=== PATIENT | female | born 1985 | race African-American/Black ===

== ENCOUNTER 2017-06-23 17:15 | Emergency (ER) | payer SELFPAY ==
[2017-06-23] MEDS ORDERED: IBUPROFEN 800 MG TABLET PO ONE (18:03)
[2017-06-23] MEDS ORDERED: LIDOCAINE 4%/TETRACAINE 0.5%/EPI 0.18% 5 ML TOPICAL SOLN TOP ONE (18:03)
[2017-06-23] MEDS ORDERED: ACETAMINOPHEN 325 MG TABLET PO ONE (18:03)
[2017-06-23] MEDS ORDERED: SULFAMETHOXAZOLE/TRIMETHOPRIM 800-160 MG TABLET PO ONE (19:37)
--- NOTE | 2017-06-23 19:38 | ER Document Report ---
HPI - HPI Patient complains to provider of: Left labia abscess Onset: Other - Several days Onset/Duration: Persistent Quality of pain: Throbbing Pain Level: 5 Context: 32-year-old female complaining of 2 painful abscess on the left labia. No history of MRSA. No fever. 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 She is allergic to penicillin. No pelvic pain Associated Symptoms: None Exacerbated by: Walking Relieved by: Denies Similar symptoms previously: No Recently seen / treated by doctor: No - ROS ROS below otherwise negative: Yes Systems Reviewed and Negative: Yes All other systems reviewed and negative Past Medical History - General Information source: Patient - Social History Smoking Status: Never Smoker Chew tobacco use (# tins/day): No Frequency of alcohol use: None Drug Abuse: None Lives with: Family Family History: Reviewed & Not Pertinent Patient has suicidal ideation: No Patient has homicidal ideation: No - Medical History Medical History: Negative Renal/ Medical History: Denies: Hx Peritoneal Dialysis Surgical Hx: Negative Vertical Provider Document - CONSTITUTIONAL Agree With Documented VS: Yes Exam Limitations: No Limitations - INFECTION CONTROL TRAVEL OUTSIDE OF THE [place] IN LAST 30 DAYS: No - HEENT HEENT: Normocephalic - NECK Neck: Supple - RESPIRATORY O2 Sat by Pulse Oximetry: 99 - MUSCULOSKELETAL/EXTREMETIES Musculoskeletal/Extremeties: ANISA CAMERON - NEURO Level of Consciousness: Awake, Alert - DERM Integumentary: Abscess - 2 follicular abscess on the left superior labia majora one is draining and one has a head to it. Course - Re-evaluation Re-evalutation: 06/23/17 19:35 no hx MRSA - Vital Signs Vital signs: Temp Pulse Resp BP Pulse Ox 97.6 F 98 16 128/72 H 99 06/23/17 17:24 06/23/17 17:24 06/23/17 17:24 06/23/17 17:24 06/23/17 17:24 Procedures - Incision and Drainage Left Labia Time completed: 19:38 Type: Simple Anesthetic type: 1% Lidocaine mL's of anesthetic: 5 Blade size: 11 I&D procedure: Betadine prep applied Incision Method: Incision made by scalpel Amount/type of drainage: large pus Discharge - Discharge Clinical Impression: I and D 2 left labia abscess Condition: Good Disposition: HOME, SELF-CARE Instructions: Abscess ([facility]), Trimethoprim-Sulfa ([facility]), Warm Packs ([facility]) Additional Instructions: warm moist compress all day tomorrow antibiotic four times per day to er if worse Prescriptions: Ibuprofen [Motrin 800 mg Tablet] 800 mg PO Q8HP PRN #30 tablet PRN Reason: Sulfamethoxazole/Trimethoprim [Sulfamethoxazole-Tmp Ds Tablet] 1 each PO BID # 14 tablet Forms: Return to Work
[2017-06-23 20:56] VITALS: BP 102/62
== END 2017-06-23 20:20 | disposition home or self-care (01) ==
LOC: ER 17:15
PROC: 0U9MXZZ Drainage of Vulva, External Approach (ICD-10-PCS; principal; 2017-06-23)
DX: N76.4 Abscess of vulva (principal)
CPT/HCPCS: 99283; 56405; J3490

== ENCOUNTER 2017-11-22 13:12 | Emergency (ER) | payer OTHER, MEDICAID ==
[2017-11-22 15:10] LABS: ABSOLUTE BASOPHILS # (AUTO) 0.1 10^3/uL (0.0-0.2); ABSOLUTE EOSINOPHILS # (AUTO) 0.4 10^3/uL (0.0-0.6); ABSOLUTE LYMPHOCYTES (AUTO) 3.5 10^3/uL (0.5-4.7); ABSOLUTE MONOCYTES (AUTO) 0.8 10^3/uL (0.1-1.4); ABSOLUTE NEUT (AUTO) 8.7 10^3/uL (1.7-8.2); BASOPHILS % (AUTO) 0.6 % (0-2); EOSINOPHILS % (AUTO) 2.7 % (0-6); HEMOGLOBIN 9.8 g/dL (12.0-15.5); LYMPHOCYTES % (AUTO) 26.2 % (13-45); MEAN CORPUSCULAR HEMOGLOBIN 26.9 pg (27.0-33.4); MEAN CORPUSCULAR HGB CONC 32.7 g/dL (32.0-36.0); MEAN CORPUSCULAR VOLUME 82 fl (80-97); MONOCYTES % (AUTO) 6.1 % (3-13); RED BLOOD COUNT 3.65 10^6/uL (3.72-5.28); RED CELL DISTRIBUTION WIDTH 13.5 % (11.5-14.0); SEGMENTED NEUTROPHILS % (AUTO) 64.4 % (42-78); TOTAL CELLS COUNTED % (AUTO) 100 %; WHITE BLOOD COUNT 13.5 10^3/uL (4.0-10.5)
[2017-11-22 15:18] LABS: APPEARANCE,URINE SLIGHTLY-CLOUDY; BILIRUBIN,URINE NEGATIVE (NEGATIVE); COLOR,URINE YELLOW; GLUCOSE, URINE NEGATIVE (NEGATIVE); KETONES,URINE 20 mg/dL (NEGATIVE); LEUKOCYTE ESTERASE,URINE NEGATIVE (NEGATIVE); NITRITE,URINE NEGATIVE (NEGATIVE); PROTEIN,URINE NEGATIVE (NEGATIVE); URINE SPECIFIC GRAVITY 1.023; UROBILINOGEN,URINE NEGATIVE mg/dL (<2.0)
[2017-11-22 15:27] LABS: ANION GAP 10 (5-19); BLOOD UREA NITROGEN 11 mg/dL (7-20); CALCIUM 9.7 mg/dL (8.4-10.2); CARBON DIOXIDE 22 mmol/L (22-30); CHLORIDE 103 mmol/L (98-107); GLUCOSE 111 mg/dL (75-110); POTASSIUM 3.9 mmol/L (3.6-5.0); SODIUM 135.1 mmol/L (137-145)
[2017-11-22 15:38] LABS: PLATELET COUNT 220 10^3/uL (150-450)
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
[2017-11-22 17:33] VITALS: BP 112/73
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
== END 2017-11-22 17:33 | disposition home or self-care (01) ==
LOC: ER 13:12
DX: O9A.212 Injury, poisoning and certain other consequences of external causes complicating pregnancy, second trimester (principal); O26.892 Other specified pregnancy related conditions, second trimester; R10.30 Lower abdominal pain, unspecified; V89.2XXA Person injured in unspecified motor-vehicle accident, traffic, initial encounter
CPT/HCPCS: 36415; 76815; 80048; 81001; 85025; 86900; 86901; 99284

== ENCOUNTER 2018-02-06 08:38 | Outpatient (CLI) | payer BC, MEDICAID ==
[2018-02-06 10:20] LABS: APPEARANCE,URINE SLIGHTLY-CLOUDY; BILIRUBIN,URINE NEGATIVE (NEGATIVE); COLOR,URINE YELLOW; GLUCOSE, URINE NEGATIVE (NEGATIVE); KETONES,URINE NEGATIVE (NEGATIVE); LEUKOCYTE ESTERASE,URINE LARGE (NEGATIVE); NITRITE,URINE NEGATIVE (NEGATIVE); PROTEIN,URINE NEGATIVE (NEGATIVE); URINE SPECIFIC GRAVITY 1.015; UROBILINOGEN,URINE NEGATIVE mg/dL (<2.0)
--- NOTE | 2018-02-06 10:45 | L&D Progress Notes ---
PROGRESS NOTES Datetime Report Generated by CPN: 02/06/2018 10:44 PROGRESS NOTE Comment: pt here with c/o contactions. Cx closed. Rx for diflucan given for yeast on UA. has f/u tomorrow in clinic SIGNATURE SIGNATURE: [id number] Assignment: Samantha King MD Signature: with User ID: [email or web address] : with User ID: [email or web address]
[2018-02-06 14:21] LABS: URINE AMPHETAMINES SCREEN NEGATIVE; URINE BARBITURATES SCREEN NEGATIVE; URINE BENZODIAZEPINES SCREEN NEGATIVE; URINE COCAINE SCREEN NEGATIVE; URINE MARIJUANA (THC) SCREEN NEGATIVE; URINE METHADONE SCREEN NEGATIVE; URINE PHENCYCLIDINE SCREEN NEGATIVE
== END 2018-02-06 10:46 | disposition home or self-care (01) ==
LOC: LC 08:38
PROVIDERS: ATTEND Obstetrics & Gynecology
PROC: 4A1HXCZ Monitoring of Products of Conception, Cardiac Rate, External Approach (ICD-10-PCS; principal; 2018-02-06)
DX: O98.813 Other maternal infectious and parasitic diseases complicating pregnancy, third trimester (principal); B37.3 Candidiasis of vulva and vagina; Z3A.30 30 weeks gestation of pregnancy
CPT/HCPCS: 80307; 81001

== ENCOUNTER 2018-04-07 05:05 | Inpatient (IN) | payer BC, MEDICAID ==
[2018-04-05 11:37] LABS: ABSOLUTE EOSINOPHILS # (AUTO) 0.1 10^3/uL (0.0-0.6); ABSOLUTE LYMPHOCYTES (AUTO) 2.3 10^3/uL (0.5-4.7); ABSOLUTE MONOCYTES (AUTO) 0.5 10^3/uL (0.1-1.4); ABSOLUTE NEUT (AUTO) 2.6 10^3/uL (1.7-8.2); BASOPHILS % (AUTO) 0.6 % (0-2); EOSINOPHILS % (AUTO) 2.3 % (0-6); HEMATOCRIT 26.7 % (36.0-47.0); HEMOGLOBIN 8.6 g/dL (12.0-15.5); LYMPHOCYTES % (AUTO) 41.4 % (13-45); MEAN CORPUSCULAR HEMOGLOBIN 23.1 pg (27.0-33.4); MEAN CORPUSCULAR HGB CONC 32.1 g/dL (32.0-36.0); MEAN CORPUSCULAR VOLUME 72 fl (80-97); MONOCYTES % (AUTO) 9.1 % (3-13); PLATELET COUNT 190 10^3/uL (150-450); RED BLOOD COUNT 3.71 10^6/uL (3.72-5.28); RED CELL DISTRIBUTION WIDTH 15.3 % (11.5-14.0); SEGMENTED NEUTROPHILS % (AUTO) 46.6 % (42-78); TOTAL CELLS COUNTED % (AUTO) 100 %; WHITE BLOOD COUNT 5.6 10^3/uL (4.0-10.5)
[2018-04-05 11:45] LABS: APPEARANCE,URINE CLEAR; BILIRUBIN,URINE NEGATIVE (NEGATIVE); COLOR,URINE YELLOW; GLUCOSE, URINE NEGATIVE (NEGATIVE); KETONES,URINE NEGATIVE (NEGATIVE); LEUKOCYTE ESTERASE,URINE NEGATIVE (NEGATIVE); NITRITE,URINE NEGATIVE (NEGATIVE); PROTEIN,URINE 30 mg/dL (NEGATIVE); URINE SPECIFIC GRAVITY 1.012; UROBILINOGEN,URINE NEGATIVE mg/dL (<2.0)
[2018-04-05 12:02] LABS: URINE AMPHETAMINES SCREEN NEGATIVE; URINE BARBITURATES SCREEN NEGATIVE; URINE BENZODIAZEPINES SCREEN NEGATIVE; URINE COCAINE SCREEN NEGATIVE; URINE MARIJUANA (THC) SCREEN NEGATIVE; URINE METHADONE SCREEN NEGATIVE; URINE PHENCYCLIDINE SCREEN NEGATIVE
[2018-04-07] MEDS ORDERED: RINGERS SOLUTION,LACTATED 1,000 ML IV PRN (05:39)
[2018-04-07] MEDS ORDERED: CEFAZOLIN 1 GM/D5W RTU 1 GM/50 ML RTUPB IV PRN (05:40)
[2018-04-07] MEDS ORDERED: CEFAZOLIN 1 GM/D5W RTU 2 GM/100 ML RTUPB IV PRN (07:00)
[2018-04-07] MEDS ORDERED: FENTANYL CITRATE INJ/PF 100 MCG/2 ML AMPUL ONE (07:21)
[2018-04-07] MEDS ORDERED: OXYTOCIN 10 UNIT/ML VIAL ONE (07:21)
[2018-04-07] MEDS ORDERED: EPHEDRINE SULFATE INJ 50 MG/1 ML AMPULE ONE (07:21)
[2018-04-07] MEDS ORDERED: OXYTOCIN/NORMAL SALINE 20 UNIT/1,000 ML RTUINJ ONE (07:21)
[2018-04-07] MEDS ORDERED: KETOROLAC TROMETHAMINE INJ/PF 30 MG/1 ML SDV ONE (07:21)
[2018-04-07] MEDS ORDERED: MIDAZOLAM 2 MG/2 ML INJ ONE (07:21)
[2018-04-07] MEDS ORDERED: BUPIVACAINE HCL/DEX-WATER/PF 15 MG/2 ML AMPULE ONE (07:21)
[2018-04-07] MEDS ORDERED: ONDANSETRON HCL INJ/PF 4 MG/2 ML SDV ONE ×2 (07:22→09:52)
[2018-04-07] MEDS ORDERED: ACETAMINOPHEN 1,000 MG/100 ML RTUPB IV ONE (07:22)
[2018-04-07] MEDS ORDERED: PROMETHAZINE HCL INJ 25 MG/1 ML VIAL IV PRN ×3 (08:10→08:31)
[2018-04-07] MEDS ORDERED: ACETAMINOPHEN 1,000 MG/100 ML RTUPB IV PRN (08:10)
[2018-04-07] MEDS ORDERED: ACETAMINOPHEN 325 MG TABLET PO PRN (08:10)
[2018-04-07] MEDS ORDERED: MEASLES,MUMPS&RUBELLA VACC/PF 0.5 ML VIAL SUBCUT PRN (08:10)
[2018-04-07] MEDS ORDERED: DIPH/PERTUSS(ACELL)/TETANUS VAC/PF 0.5 ML SYR (>=10YO) IM PRN (08:10)
[2018-04-07] MEDS ORDERED: OXYCODONE-ACETAMINOPHEN 5-325 MG TABLET PO PRN (08:10)
[2018-04-07] MEDS ORDERED: OXYTOCIN/NORMAL SALINE 20 UNIT/1,000 ML RTUINJ IV PRN (08:10)
[2018-04-07] MEDS ORDERED: SIMETHICONE 80 MG TAB.CHEW PO PRN (08:10)
[2018-04-07] MEDS ORDERED: HYDROMORPHONE HCL INJ/PF 2 MG/ML AMPULE IV PRN (08:10)
[2018-04-07] MEDS ORDERED: DIPHENHYDRAMINE HCL 50 MG/ML VIAL IV PRN (08:31)
[2018-04-07] MEDS ORDERED: MEPERIDINE HCL/PF INJ 25 MG/1 ML DISP.SYRIN IV PRN (08:31)
[2018-04-07] MEDS ORDERED: FENTANYL CITRATE INJ/PF 100 MCG/2 ML AMPUL IV PRN ×3 (08:31)
[2018-04-07] MEDS ORDERED: ONDANSETRON HCL INJ/PF 4 MG/2 ML SDV IV PRN (08:31)
--- NOTE | 2018-04-07 09:13 | PDOC DELIVERY SUMMARY ---
Delivery Summary - Maternal Hx : II Hx # Pregnancies: 1 ASIA: 04/13/18 Gestational Age: 37 weeks Ruptured Membranes: AROM Time of Rupture: 08:32 Fluids: Clear - Delivery Presentation: Vertex Heart Rate Monitoring: Done Pre-Operatively Support Person Present: Yes Location: OR : Scheduled, Repeat Placenta: Within Normal Limits Delivery of Placenta Date: 04/07/18 Delivery of Placenta Time: 08:34 - Medications Type of Anesthesia:: Spinal - Assess and Care Baby 1 Female Delivery of Date: 04/07/18 Delivery of Infant Time: 08:33 at 1 minute: 8 at 5 minutes: 9 Preprinted Number On Band: [id number] Skin to Skin: No To Nursery At: 08:42 Mode of Transport: Bassinet - Delivery Personnel Shell Fisherman: SADAF BOYKIN RN: EARNESTINE QUIÑONES MD: ROBYN CLIFTON
--- NOTE | 2018-04-07 09:19 | Operative Report ---
Operative Report DATE OF SURGERY: 04/07/18 PREOPERATIVE DIAGNOSIS: Patient desires repeat to prevent the risk of uterine rupture POSTOPERATIVE DIAGNOSIS: Same OPERATION: Repeat via low transverse uterine incision and lysis of adhesions SURGEON: ROBYN CLIFTON ANESTHESIA: Spinal TISSUE REMOVED OR ALTERED: Placenta COMPLICATIONS: None ESTIMATED BLOOD LOSS: 250 cc INTRAOPERATIVE FINDINGS: Dense adhesions of the lower uterine segment to the anterior abdominal wall PROCEDURE: Patient was taken back to the OR and placed in supine position. A spinal had been placed prior to this. A Norton catheter was placed SCDs were placed. Her abdomen was prepared and draped in sterile fashion. A low transverse incision was made along her old scar and carried down level of the fascia. The fascia was nicked in the midline. The fascial incision was extended bilaterally using curved Smart scissors. The fascia was off the rectus muscles using sharp and blunt dissection. The rectus muscles were in the midline. The peritoneum was entered without incident. Peritoneal incision extended superiorly inferiorly taking care not to injure bladder. There were dense adhesions at the low uterine segment in this region. Using sharp dissection these were taken down to allow room for delivery of the baby. There is no evidence of injury to the bladder during this period bladder blade was placed lower uterine segment was identified and incision was made with the see safe knife. The baby was delivered with some fundal pressure in a vertex fashion. She was passed off to the boning room worker in attendance. The placenta was manually extracted. The uterus was quite large and would not fit through the incision and was closed in situ. First the uterine contents wiped clean. The uterus closed with a running locking stitch of 0 chromic. A second layer of 0 chromic was used to imbricate first. This completed double layer closure of the uterus. Interceed was placed over the incision and attempt to prevent the adhesions from reforming. Hemostasis was assured. The rectus muscles were plicated in the midline with interrupted 2-0 chromic stitch. The subfascial tissues were inspected for bleeding and the fascia was closed with a running 0 Vicryl in 2 segments. The wound was irrigated Keshawn's layer was closed 2-0 plain gut stitch. The skin was closed with a running subcuticular 4-0 undyed Vicryl stitch and dressing was placed. Mother and baby are doing well.
[2018-04-07] MEDS ORDERED: DEXAMETHASONE SOD PHOSPHATE INJ 4 MG/1 ML VIAL ONE (09:52)
[2018-04-07] MEDS ORDERED: METOCLOPRAMIDE HCL INJ/PF 10 MG/2 ML SDV ONE (09:52)
[2018-04-07] MEDS ORDERED: HYDROMORPHONE HCL INJ/PF 2 MG/ML AMPULE ONE (10:30)
[2018-04-07] MEDS ORDERED: PROMETHAZINE HCL INJ 25 MG/1 ML VIAL ONE (10:31)
[2018-04-07] MEDS: RINGERS SOLUTION,LACTATED 1,000 ML IV PRN ×2 (10:39→19:58)
[2018-04-07] MEDS: DOCUSATE SODIUM 100 MG CAPSULE PO SCH ×2 (11:37→17:52)
[2018-04-07] MEDS: PRENATAL VITAMIN W DHA CAPSULE PO SCH (11:37)
[2018-04-07] MEDS: KETOROLAC TROMETHAMINE INJ/PF 30 MG/1 ML SDV IV SCH ×2 (14:33→22:33)
[2018-04-07] MEDS: OXYCODONE-ACETAMINOPHEN 5-325 MG TABLET PO PRN (19:58)
[2018-04-08] MEDS: OXYCODONE-ACETAMINOPHEN 5-325 MG TABLET PO PRN ×3 (03:03→12:59)
[2018-04-08] MEDS ORDERED: LIDOCAINE 0.5% INJ-PF (5 MG/ML) 50 ML SDV SUBCUT PRN (05:00)
[2018-04-08] MEDS ORDERED: NORMAL SALINE 1000 ML (RENAL PATIENTS) IV PRN (05:00)
[2018-04-08] MEDS ORDERED: LACTATED RINGERS 1000 ML IV PRN (05:00)
[2018-04-08] MEDS: KETOROLAC TROMETHAMINE INJ/PF 30 MG/1 ML SDV IV SCH (05:17)
[2018-04-08 07:17] LABS: HEMATOCRIT 22.6 % (36.0-47.0); MEAN CORPUSCULAR HEMOGLOBIN 23.4 pg (27.0-33.4); MEAN CORPUSCULAR HGB CONC 32.2 g/dL (32.0-36.0); MEAN CORPUSCULAR VOLUME 73 fl (80-97); PLATELET COUNT 176 10^3/uL (150-450); RED BLOOD COUNT 3.12 10^6/uL (3.72-5.28); RED CELL DISTRIBUTION WIDTH 15.5 % (11.5-14.0)
[2018-04-08 07:30] LABS: WHITE BLOOD COUNT 13.8 10^3/uL (4.0-10.5)
[2018-04-08 07:32] LABS: HEMOGLOBIN 7.3 g/dL (12.0-15.5)
[2018-04-08] MEDS: PRENATAL VITAMIN W DHA CAPSULE PO SCH (10:11)
[2018-04-08] MEDS: DOCUSATE SODIUM 100 MG CAPSULE PO SCH ×2 (10:11→17:10)
[2018-04-08] MEDS: IBUPROFEN 800 MG TABLET PO SCH ×3 (12:59→23:08)
--- NOTE | 2018-04-08 14:54 | PDOC PROGRESS REPORT ---
Subjective-OB Progress Note for:: 04/08/18 Subjective: reports bleeding slowing, pain controlled with current meds, denies needs, + passing gas, denies sx of anemia, agrees to plan for recheck in AM Physical Exam (OB) Vital Signs: Temp Pulse Resp BP Pulse Ox 98.5 F 93 18 118/62 98 04/08/18 12:48 04/08/18 12:48 04/08/18 12:48 04/08/18 12:48 04/08/18 12:48 Intake & Output 04/07/18 04/08/18 04/09/18 06:59 06:59 06:59 Intake Total 4150 Output Total 950 Balance 3200 Weight 101.151 kg - Dressing Removed: No - opsite dressing in place Incision: Dressing, Draining, Well Approximated - intact but wet (not bloody) under op sit-RN requested change and help with binder Closure Type: ops site - Abdomen Description: Tender, Soft Hernia Present: No Fundal Description: Firm, Midline Fundal Height: u/u - u/2 - Extremities Lower extremities: Johanny's sign - neg Calf: Nontender - slightly edematous Objective-Diagnostic Laboratory: 04/08/18 06:01 04/08/18 06:01 WBC 13.8 H D RBC 3.12 L Hgb 7.3 L Hct 22.6 L MCV 73 L MCH 23.4 L MCHC 32.2 RDW 15.5 H Plt Count 176 Assessment and Plan(PN) - Assessment and Plan (1) Status post repeat low transverse section Is this a current diagnosis for this admission?: Yes - Time Spent with Patient Time with patient: Less than 15 minutes - Disposition Anticipated Discharge: Home Within: within 48 hours
[2018-04-08] MEDS: FERROUS SULFATE 325 MG TABLET PO SCH ×2 (15:06→17:10)
[2018-04-09] MEDS: IBUPROFEN 800 MG TABLET PO SCH (06:24)
[2018-04-09 07:35] LABS: HEMATOCRIT 22.6 % (36.0-47.0); MEAN CORPUSCULAR HEMOGLOBIN 23.2 pg (27.0-33.4); MEAN CORPUSCULAR HGB CONC 32.4 g/dL (32.0-36.0); MEAN CORPUSCULAR VOLUME 72 fl (80-97); PLATELET COUNT 181 10^3/uL (150-450); RED BLOOD COUNT 3.15 10^6/uL (3.72-5.28); RED CELL DISTRIBUTION WIDTH 16.1 % (11.5-14.0); WHITE BLOOD COUNT 10.9 10^3/uL (4.0-10.5)
[2018-04-09 07:50] LABS: HEMOGLOBIN 7.3 g/dL (12.0-15.5)
[2018-04-09] MEDS: OXYCODONE-ACETAMINOPHEN 5-325 MG TABLET PO PRN (08:04)
[2018-04-09] MEDS: FERROUS SULFATE 325 MG TABLET PO SCH (10:07)
[2018-04-09] MEDS: PRENATAL VITAMIN W DHA CAPSULE PO SCH (10:07)
[2018-04-09] MEDS: DOCUSATE SODIUM 100 MG CAPSULE PO SCH (10:07)
--- NOTE | 2018-04-09 10:51 | PDOC DISCHARGE SUMMARY ---
Final Diagnosis Discharge Date: 04/09/18 - Final Diagnosis (1) Status post repeat low transverse section Is this a current diagnosis for this admission?: Yes (2) Anemia affecting Is this a current diagnosis for this admission?: Yes Discharge Data - Discharge Medication Prescriptions: Ibuprofen [Motrin 800 mg Tablet] 800 mg PO Q8HP PRN #60 tablet PRN Reason: Oxycodone HCl/Acetaminophen [Percocet 5-325 mg Tablet] 1 tab PO Q4HP PRN #30 tablet PRN Reason: Home Medications: 105/Iron/Folic AC/Dha [Prena1 True Combo Pack] 1 each PO DAILY PRN Docusate Sodium [Colace 100 mg Capsule] 100 mg PO BID capsule 04/09/18 Ferrous Sulfate [Feosol 325 mg Tablet] 325 mg PO BID tablet 04/09/18 Ibuprofen [Motrin 800 mg Tablet] 800 mg PO Q8HP PRN #60 tablet 04/09/18 Oxycodone HCl/Acetaminophen [Percocet 5-325 mg Tablet] 1 tab PO Q4HP PRN #30 tablet 04/09/18 Procedures: NST Intrapartum Procedure(s): : Low Cervical, Transverse - Diagnosis Test Laboratory: Temp Pulse Resp BP Pulse Ox 98.5 F 79 18 125/55 L 100 04/09/18 07:43 04/09/18 07:43 04/09/18 07:43 04/09/18 07:43 04/09/18 07:43 04/05/18 04/05/18 04/08/18 11:00 11:15 06:01 RBC 3.71 L 3.12 L Hgb 8.6 L 7.3 L Hct 26.7 L 22.6 L Urine Opiates Screen NEGATIVE 04/09/18 06:50 RBC 3.15 L Hgb 7.3 L Hct 22.6 L Urine Opiates Screen - Discharge information/Instructions Discharge Activity: Balance Activity w/Rest, No Lifting Over 10 Pounds, No Lifting/Push/Pulling, Pelvic Rest, No tub bath Discharge Diet: Regular Disposition: HOME, SELF-CARE Follow up with: [facility] in: 1, Weeks
[2018-04-09 11:55] VITALS: BP 114/61
== END 2018-04-09 12:32 | disposition home or self-care (01) | DRG 766 ==
LOC: 2S 05:05
PROVIDERS: ADMIT Obstetrics & Gynecology; ATTEND Obstetrics & Gynecology
PROC: 4A1HXCZ Monitoring of Products of Conception, Cardiac Rate, External Approach (ICD-10-PCS; 2018-04-07)
PROC: 10D00Z1 Extraction of Products of Conception, Low, Open Approach (ICD-10-PCS; principal; 2018-04-07 07:45)
DX: O34.211 Maternal care for low transverse scar from previous cesarean delivery (principal); O24.425 Gestational diabetes mellitus in childbirth, controlled by oral hypoglycemic drugs; O99.89 Other specified diseases and conditions complicating pregnancy, childbirth and the puerperium; O99.02 Anemia complicating childbirth; D64.9 Anemia, unspecified; N73.6 Female pelvic peritoneal adhesions (postinfective); Z3A.37 37 weeks gestation of pregnancy; Z37.0 Single live birth
CPT/HCPCS: 1961; 36415; 59025; 80307; 81001; 82962; 85025; 85027; 86850; 86900; 86901; 94799; C1765; J0131; J0690; J1100; J1170; J1885; J2250; J2405; J2550; J2590; J2765; J3010; J3490